=== PATIENT | female | born 2005 | race African-American/Black ===

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

== ENCOUNTER 2025-08-27 23:44 | Emergency (ER) | payer MEDICAID | END 2025-08-28 00:31 | disposition home or self-care (01) | LOC: CSHERS 23:44 | DX: J06.9 Acute upper respiratory infection, unspecified (principal) | CPT/HCPCS: 87081; 87428; 87430; 99283 ==

== ENCOUNTER 2025-09-07 09:41 | Day surgery (SDC) | payer MEDICAID ==
[2025-09-07] MEDS ORDERED: hydrALAZINE 20 MG/ML VIAL SLOW IVP PRN (10:10)
[2025-09-07 10:14] VITALS: BMI 31.6
[2025-09-07] MEDS: Acetaminophen 500 MG TAB PO SCH (10:23)
== END 2025-09-07 10:51 | disposition home or self-care (01) ==
LOC: CSHLD/OP 09:41
PROVIDERS: ATTEND Family Medicine
DX: O92.29 Other disorders of breast associated with pregnancy and the puerperium (principal); Z3A.26 26 weeks gestation of pregnancy; Z79.899 Other long term (current) drug therapy
CPT/HCPCS: 99284